=== PATIENT | male | born 1945 | race Caucasian/White ===

== ENCOUNTER 2016-08-05 05:32 | Inpatient (IN) | payer OTHER ==
[~2016-08-05] VITALS: Ht 180.3 cm; Wt 98.7 kg
[~2016-08-05 05:32] MED LIST: ALTACE10 MG PO; ASPIRIN81 M2 PO; FERROUS SULFAT325 MG PO; HYDROCODON-ACE1 EAC9 PO; LIPITOR80 MG PO; NORVASC10 MG PO; OMEPRAZOLE20 MG PO; TENORMIN50 MG PO; XANAX0.25 MG PO; ZETIA10 MG PO; ZOLOFT50 MG PO
[2016-08-05 06:08] VITALS: BP 154/71
[2016-08-05 14:25] VITALS: BP 160/78
[2016-08-05 19:58] VITALS: BP 126/64
[2016-08-06] VITALS (7 sets, daily range): BP systolic 144–167; BP diastolic 67–79
[2016-08-06 05:43] LABS: HEMATOCRIT 30.2 % (38.0-50.0); MCV 96.2 FL (86-99)
[2016-08-07 03:41] VITALS: BP 144/67
[2016-08-07 07:49] LABS: HEMATOCRIT 29.3 % (38.0-50.0); MCV 95.1 FL (86-99)
[2016-08-07 08:47] VITALS: BP 180/77
[2016-08-07] MEDS ORDERED: BENADRYL25 MG PO (09:38)
[2016-08-07] MEDS ORDERED: BISACODYL5 MG PO (09:42)
[2016-08-07] MEDS ORDERED: TYLENOL REGULA325 MG PO (09:42)
[2016-08-07] MEDS ORDERED: MORPHINE SULFAT15 M1 PO (09:43)
[2016-08-07] MEDS ORDERED: XARELTO10 MG PO (09:43)
[2016-08-07] MEDS ORDERED: OXYCODONE HCL5 MG PO (09:43)
[2016-08-07] MEDS ORDERED: CELECOXIB200 MG PO (09:43)
[2016-08-07 12:30] VITALS: BP 140/78
== END 2016-08-07 15:59 | disposition home or self-care (01) | DRG 470 ==
LOC: 2SOUTH 05:32 → 3EAST 05:32 → 2SOUTH 09:27 → 3EAST 14:19 → 2SOUTH 14:46 → 3EAST 08-07 15:59
PROVIDERS: Orthopaedic Surgery
PROC: 0SRC0J9 Replacement of Right Knee Joint with Synthetic Substitute, Cemented, Open Approach (ICD-10-PCS; principal; 2016-08-05)
DX: M17.11 Unilateral primary osteoarthritis, right knee (principal); I10 Essential (primary) hypertension; G89.18 Other acute postprocedural pain; R41.0 Disorientation, unspecified; G89.29 Other chronic pain; M51.16 Intervertebral disc disorders with radiculopathy, lumbar region; Z79.891 Long term (current) use of opiate analgesic; M47.896 Other spondylosis, lumbar region; Z87.81 Personal history of (healed) traumatic fracture; I25.10 Atherosclerotic heart disease of native coronary artery without angina pectoris; I25.2 Old myocardial infarction; Z95.5 Presence of coronary angioplasty implant and graft; M21.161 Varus deformity, not elsewhere classified, right knee
CPT/HCPCS: 85014; 85018; 97530 GP; C1713; G0480; J0131; J0690; J1170; J1885; J2250; J2405; J2795; J3010; J7050; L1820